=== PATIENT | female | born 1990 | race Caucasian/White ===

== ENCOUNTER → 2021-10-15 09:14 | Outpatient (CLI) | payer OTHER, SELFPAY ==
--- NOTE | ~2021-10-15 | US_ITS ---
EXAMINATION: US OB transvaginal DATE: 10/15/2021 09:35 INDICATION: Spotting complicating . First trimester. TECHNIQUE: Real-time transvaginal pelvic ultrasound was performed. COMPARISON: None. FINDINGS: The uterus measures 8.4 x 4.6 x 4.9 cm. There is an intrauterine gestational sac. A yolk sac is ident ified. The crown rump length measures 7 mm, which correlates with an estimated gestational age of 6 weeks and 4 day(s) (+/-) 4 day(s). heart motion is identified measuring 111 beats per min [place] (bpm) by M-mode Doppler. There is a 0.9 x 0.2 x 1.2 cm subchorionic hematoma. The right ovary jose juan sures 3.5 x 2.3 x 3.7 cm. The left ovary measures 2.1 x 1.7 x 3.0 cm. There is no free fluid in the p hakan. IMPRESSION: 1. Single living intrauterine gestation with estimated date of delivery of 06/06/2022. 2. Small subchorionic hematoma. Reviewed, dictated and finalized at location B. WRESTLING COACH IMPRESSION: 1. Single living intrauterine gestation with estimated date of delivery of 05/19. 2. Small subchorionic hematoma.
== END ==
PROVIDERS: Visit Provider Obstetrics & Gynecology
DX: O26.851 Spotting complicating pregnancy, first trimester (principal); Z3A.00 Weeks of gestation of pregnancy not specified
CPT/HCPCS: 76817

== ENCOUNTER 2021-10-17 08:04 | Outpatient (RCR) | payer OTHER, SELFPAY | END 2022-01-13 23:59 | disposition home or self-care (01) | LOC: ANHLAB 08:04 | PROVIDERS: Visit Provider Obstetrics & Gynecology | DX: O26.859 Spotting complicating pregnancy, unspecified trimester (principal); Z3A.00 Weeks of gestation of pregnancy not specified | CPT/HCPCS: 36415; 84702; 85461 ==

== ENCOUNTER → 2021-11-01 13:14 | Outpatient (CLI) | payer BC, SELFPAY ==
--- NOTE | ~2021-11-01 | US_ITS ---
EXAMINATION: US OB limited DATE: 11/01/2021 13:29 INDICATION: Subchorionic hematoma spotting during first trimester TECHNIQUE: Real-time pelvic ultrasound utilizing transabdominal probe was performed. The emilianain g radiologist was not present for the study. COMPARISON: None. FINDINGS: The uterus measures 9.8 x 6.1 x 7.7 cm. There is an intrauterine gestational sac. A yolk sac and fet al pole are identified. heart motion is identified measuring 172 beats per minute (bpm) by M-mo de Doppler. Persistent small hypoechoic subchorionic hematoma measuring 1.7 x 1.1 x 0.7 cm. IMPRESSION: 1. Single living fetus with heart rate of 172 bpm. 2. Persistent 1.7 x 1.1 x 0.7 cm subchorionic hematoma. Reviewed, dictated and finalized at location A. CUTTER
== END ==
PROVIDERS: Visit Provider Obstetrics & Gynecology Gynecology
DX: O26.851 Spotting complicating pregnancy, first trimester (principal); Z3A.00 Weeks of gestation of pregnancy not specified
CPT/HCPCS: 76815

== ENCOUNTER 2022-06-06 06:14 | Inpatient (IN) | payer BC, SELFPAY ==
[2022-06-06] VITALS (18 sets, daily range): BP systolic 87–154; BP diastolic 48–135; PULSE 54–172; RESP 16–18; TEMP 36.5–36.9; O2SAT 97–99; BMI 25.0
--- NOTE | 2022-06-06 06:23 | PM.IMHP ---
H&P: HPI History of Present Illness Date/Time: 06/06/22 06:23 Chief Complaint: active labor at term Narrative: this is a 32-year-old menstrual CT 2 at term in active labor she spontaneously ruptured that 0445. She negative for group B strep and appears her has been complicated PMFSH Family History Family History Father Squamous carcinoma Mother Hypertension Grandparent Alzheimer disease Social History Social History Substance use: never Spiritual care concerns: No Meds Home Medications and Allergies Home Medications Medication Instructions Recorded Confirmed Type prenat.vits,tejas,[id number] 1 tablet PO DAILY 05/14/22 05/14/22 History Allergies Allergy/AdvReac Type Severity Reaction Status Date / Time No Known Allergies Allergy Verified 05/14/22 15:15 Exam : Speculum Exam - Vagina: normal appearance of the vagina Speculum Exam - Cervix: normal appearance of the cervix ( cervix complete. Clear fluid seen. heart tones with variables) Assessment and Plan Assessment and plan (1) Term : Code(s): Z34.90 - Encounter for supervision of normal , unspecified, unspecified trimester Status: Acute (2) Active labor: Status: Acute Plan spontaneous vaginal delivery is expected
--- NOTE | 2022-06-06 06:30 | LDADM ---
This patient, Kathryn Herbert, was admitted to Labor/Delivery/Recovery 105 on 06/06/22 at 06:14. Plans for labor, pain management and were discussed with patient. Patient/family oriented to hospital policies and general routines including ID bracelet, bed and alarms, visiting hours, pain management, procedures, bathroom and other care routines, personal items, smoking policy, room service/diet and guest tray routines, security routines, and visiting hours. Patient/Family are encouraged to report perceived risks to care and to ask questions if they do not understand what they are told or what they should do. See OBIX for further documentation.
[2022-06-06 06:45] LABS: Basophils Percent Auto 0.3 % (0.2-1.2); Eosinophils Absolute Auto 0.3 K/mm3 (0-0.3); Eosinophils Percent Auto 2.1 % (0-4.4); Hematocrit 39.7 % (37.0-47.0); Hemoglobin 13.2 g/dL (12.0-15.0); Immature Granulocyte Absolute 0.06 K/mm3 (0.00-0.031); Immature Granulocyte Percent A 0.4 % (0-0.5); Lymphocytes Absolute Auto 2.42 K/mm3 (0.9-3.2); Lymphocytes Percent Auto 16.6 % (18.3-44.2); Mean Corpuscular HGB Conc 33.2 g/dl (32-36); Mean Corpuscular Hemoglobin 31.4 pg (26-34); Mean Corpuscular Volume 94.3 fl (80-100); Monocytes Absolute Auto 0.9 K/mm3 (0.1-0.6); Monocytes Percent Auto 6.1 % (2.6-8.5); Neutrophils Absolute Auto 10.9 K/mm3 (1.3-6.7); Neutrophils Percent Auto 74.5 % (45.5-73.1); Platelet Count Result 168 k/mm3 (150-375); Red Blood Count 4.21 M/mm3 (4.2-5.4); Red Cell Distribution Width 12.7 % (11.5-14.5); White Blood Count 14.6 K/mm3 (4.5-10.0)
[2022-06-06] MEDS: OXYTOCIN 30 UNITS/NS 500 ML 30 UNITS/500 ML BAG 999 UNITS IV CONT (06:54)
[2022-06-06] MEDS: LACTATED RINGERS 1,000 ML 125 ML IV CONT (06:54)
--- NOTE | 2022-06-06 07:05 | PM.OBPRVD ---
OB - Delivery Note Procedure Delivery date: 06/06/22 Procedure: Induction method: None Delivery monitor: External FHT Route of delivery: Episiotomy description: None Laceration Description: Perineal - 1st Degree Delivery repair: vicryl Specimen: No Quantitative Blood Loss (ml): 59 Anesthesia type: Local Disposition: Floor [place] Baby Date of : 06/06/22 Time of : 06:54 Weeks of gestation at delivery: 39 gender: Female presentation: vertex position: Right Occiput Anterior Placenta delivery description: Spontaneous Cord Vessel Description: 3 Vessels, Nuchal Cord, Tight and Clamped/Cut score one minute: 8 score five minutes: 9
[2022-06-06] MEDS: OXYTOCIN 30 UNITS/NS 500 ML 30 UNITS/500 ML BAG 125 UNITS IV CONT (07:25)
[2022-06-06 07:37] LABS: HIV 1/2 Ab P24 Ag Result Negative (Negative)
[2022-06-06 08:48] LABS: Rapid Plasma Reagin Non-Reactive (NonReactive)
--- NOTE | 2022-06-06 14:58 | OBPPTRN ---
1000-Patient transferred to post room #292 via wheelchair. Support person present. Oriented to unit, room, information board, rooming in, admission packet and security measures. Patient verbalizes understanding.
[2022-06-07 04:30] VITALS: BP 94/62; PULSE 80; RESP 16; TEMP 36.9; O2SAT 99
[2022-06-07 05:35] LABS: Hematocrit 33.4 % (37.0-47.0)
--- NOTE | 2022-06-07 07:06 | PM.DS ---
DS: Admitting Diagnosis Discharge Date 06/07/2022 Admitting Diagnosis term in active labor DS: Discharge Diagnosis Discharge Diagnosis (1) Term : Code(s): Z34.90 - Encounter for supervision of normal , unspecified, unspecified trimester Status: Acute DS: Summary Hospital Course Reason for hospitalization: active labor at term Hospital Course: patient was admitted in active labor and underwent rapid spontaneous vaginal delivery. Her 24hour course was unremarkable. She remained afebrile. She was up, voiding without difficulty, ambulating, generally without complaints. Time Spent with Patient Time attestation: Total time spent providing and/or coordinating discharge services: DS: Data Data Completed and Pending Labs on day of discharge: Labs from last 24 hours 06/07/22 06/06/22 06/06/22 04:46 06:35 06:35 Hgb 11.0 L Hct 33.4 L RPR Non-reactive HIV 1&2 Ab/P24 Ag 4thGn Negative Discharge Plan Discharge Attending physician on discharge: Griffin Lawton Discharging Clinician: Griffin Lawton Patient Disposition: Home, Self-Care Activity: may shower, no straining and pelvic rest Diet: heart healthy Wound Care Instructions: follow printed instructions Patient Instructions: Antibiotic Form Stand Alone Forms: General Discharge Information Follow-up/Referrals: Griffin Lawton MD [Physician] - Discharge Medications: Continued #2 Tablet 1 tablet PO DAILY Date of admission: 06/06/22 06:14 Primary Care Provider: PHYSICIAN,ASSISTANT PROFESSOR OF NURSING Admitting Provider: Griffin Lawton Attending physician on admission: Griffin Lawton Condition: Stable
--- NOTE | 2022-06-07 07:10 | PM.OBPNVD ---
OB - PN: Subj Subjective Date/time seen: 06/07/22 07:10 Patient comments: no complaints and pain well controlled baby status: doing well OB - PN: Obj Data Labs CBC & Chem 7: 06/07/22 04:46 Labs: Laboratory Results - last 24 hr 06/06/22 06/06/22 06/07/22 06:35 06:35 04:46 Hgb 11.0 L Hct 33.4 L RPR Non-reactive HIV 1&2 Ab/P24 Ag 4thGn Negative OB - PN A/P Plan day: 1 Plan: routine care, discharge home and follow up 6 weeks Time Spent With Patient Time: Total time spent is greater than 50% in coordination of care (as documented) at patient's floor/unit and/or counseling patient: Time with patient: less than 15 minutes
[2022-06-07 09:08] VITALS: BP 97/64; PULSE 86; RESP 16; TEMP 36.6; O2SAT 97
--- NOTE | 2022-06-07 14:03 | PC.NURSE ---
Patient instructed on viewing the discharge video Mother & Baby Care, The First Two Weeks . Patient was given the opportunity and encouraged to ask questions. Patient verbalized understanding of information shared and has been given the mother/baby guide for home reference.
[2022-06-09 11:16] VITALS: BP 110/73; PULSE 90; RESP 18; TEMP 36.8; O2SAT 99
== END 2022-06-07 14:08 | disposition home or self-care (01) | DRG 807 ==
LOC: ANHLDR 06:21 → ANHOB2 10:03
PROVIDERS: Admitting Provider Obstetrics & Gynecology; Visit Provider Obstetrics & Gynecology
DX: O62.3 Precipitate labor (principal); Z37.0 Single live birth; O69.81X0 Labor and delivery complicated by cord around neck, without compression, not applicable or unspecified; O70.0 First degree perineal laceration during delivery; Z3A.39 39 weeks gestation of pregnancy
CPT/HCPCS: 36415; 85014; 85018; 85025; 86592; 86703; 86850; 86900; 86901; A9270; G0432; J2590; J7120

== ENCOUNTER 2024-12-13 10:40 | Outpatient (CLI) | payer BC, SELFPAY ==
--- NOTE | ~2024-12-13 | XR_ITS ---
EXAMINATION: XR hysterosalpingogram DATE: 12/13/2024 11:57 INDICATION: Infertility. TECHNIQUE: Fluoroscopy was performed by the radiologist during contrast infusion into the endometrial cavity of the uterus by the primary physician. Fluoroscopy exposure time was 0.2 minutes. The total number of images was 3. FINDINGS: The intrauterine cavity is normal in morphology. The fallopian tubes are normal. There is n ormal free intraperitoneal spillage of contrast on either side. IMPRESSION: 1. Normal hysterosalpingogram. Reviewed, dictated and finalized at location A. ER ROLLER GRINDER
[2024-12-13 12:15] LABS: Beta HCG Quantitative < 2.39 mIU/ML
--- OUTSIDE RECORDS SUMMARY | 2024-12-13 12:34 | XMS_ITS | Clinical Summary ---
Author Organization [facility] Address [address] [place] [address] Phone Care Team Providers Care Batch Heat Treat Operator Name Role Phone Provider, Unknown Primary Care Provider Unavaila ble Allergies No known active allergies Medications No known medications Active Problems No known active problems Immunizations Immunization Administration Dates Next Due Covid-19, Mrna, Lnp-s, Pf, 3 0 Mcg/0.3 Ml Dose ([place]) 10/29/2020,10/08/2020 Influenza Vaccine, Quadrivalent, PF 08/06/2021,0 07/12/2020,07/14/2019 Social History Tobacco Use Types Packs/Day Years Used Date Smoking Tobacco: Never Smokeless Tobacco: Never Tobacco Cessation:Counseling Given: Not Answered Alcohol Use Standard Drinks/Week Comments Yes 0 (1 standard drink = 0.6 oz pur e alcohol) infrequent Comments Unknown Sex and Gender Information Value Date Recorded Sex Assigned at Not on file Legal Sex Female 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 Gender Identity Not on file Sexual Orientation Not on file Last Filed Vital Signs Vital Sign Reading Time Taken Comments Blood Pressure 114/82 08/09/2024 2:42 PM CDT Pulse 101 08/09/2024 2:42 PM CDT Temperature 36.3 C (97.4 F) 08/09/2024 2:42 PM CDT Respiratory Rate 16 08/09/2024 2:42 PM CDT Oxygen Saturation 97% 08/09/2024 2:42 PM CDT Inhaled Oxygen Concentration - - Weight - - Height - - Body Mass Index - - Plan of Treatment Health Maintenance Due Date Last Done Comments Hepatitis C Virus (HCV) Screening 1992 Hepatitis B Immunization (1 of 3 - 19+ 3-dose series) 02/02/2011 Pap Smear 02/02/2013 Cervical Cancer Screening (CCS) 02/02/2022 HPV/Cotest 02/02/2022 Influenza Immunization (#1) 2024 11/0 05/2022, 08/06/2021, 07/12/2020, Additional history exists SARS-COV-2 Immunization (2023- season) 2024 10/29/2020, 10/08/2020 Respiratory Syncytial Virus (RSV) Immunization (Adult) (1 - 1-dose 75+ series) 02/02/2067 DTaP/Tdap/Td Immunization Discontinued 04/02/2022 TdaP Immunization Completed 04/02/2022 Meningococcal Immunization (ACWY) Aged Out No longer eligible based on patient's age to complete this topic Pneumococcal Immunization Combined Aged Out No longer eligible based on patient's age to complete this topic Rotavirus Immunization Aged Out No lo nger eligible based on patient's age to complete this topic Insurance Care Teams Batch Heat Treat Operator Relationship Specialty Start Date End Date Provider, Unknown UNKNOWN PCP - General 08/09/24
== END 2024-12-13 10:41 | disposition home or self-care (01) ==
PROVIDERS: Visit Provider Obstetrics & Gynecology
DX: N97.9 Female infertility, unspecified (principal)
CPT/HCPCS: 36415; 58340; 74740; 84702; Q9966

== ENCOUNTER 2025-10-08 04:45 | Inpatient (IN) | payer BC, SELFPAY ==
[2025-10-08] VITALS (25 sets, daily range): BP systolic 75–177; BP diastolic 52–145; PULSE 68–127; RESP 16; TEMP 36.6–37.2; O2SAT 96–98; BMI 27.8
[2025-10-08] MEDS: LACTATED RINGERS 1,000 ML 125 ML IV CONT (05:27)
[2025-10-08] MEDS: OXYTOCIN 30 UNITS/NS 500 ML 30 UNITS/500 ML BAG IV CONT (05:30)
[2025-10-08 05:31] LABS: Hematocrit 29.3 % (37.0-47.0); Hemoglobin 9.6 g/dL (12.0-15.0); Immature Granulocyte Percent A 0.4 % (0-0.5); Lymphocytes Absolute Auto 1.79 K/mm3 (0.9-3.2); Mean Corpuscular HGB Conc 32.8 g/dl (32-36); Mean Corpuscular Hemoglobin 29.7 pg (26-34); Mean Corpuscular Volume 90.7 fl (80-100); Nucleated Red Blood Cells Absolute Auto 0.000 K/mm3 (0.0-0.012); Nucleated Red Blood Cells Perc 0.0 % (0.0-0.2); Platelet Count Result 159 k/mm3 (150-375); Red Blood Count 3.23 M/mm3 (4.2-5.4); White Blood Count 8.0 K/mm3 (4.5-10.0)
--- NOTE | 2025-10-08 05:42 | PM.IMHP2 ---
H&P: HPI History of Present Illness Date/Time: 10/08/25 05:42 Chief Complaint: Term Narrative: 35-year-old 2 para 1 whose last menstrual period was 12/28/2024, EDC is 10/04/2025, presents at 40 and half weeks gestation for induction of labor she has an early ultrasound confirming dates. She is negative for group B strep and passed her diabetic screen she had a history of a fast labor and the cervix is very favorable Review of Systems Review of Systems: All systems reviewed & are unremarkable except as noted in HPI and below PMFSH Family History Family History Father Squamous carcinoma Mother Hypertension Grandparent Alzheimer disease Social History Social History Smoking status: Never smoker Second hand tobacco smoke exposure: No Substance use: never Lack of Transportation: No Lack of Food: Never True Current Housing: I Have Housing Concerned About Future Housing: No Difficulty Paying Gas/Electric Bills: No Difficulty Paying for Meds: No Currently Unemployed: No Education: Master's Degree or Higher Difficulty w/ Childcare or Family Care: No Spiritual care concerns: No Meds Home Medications and Allergies Home Medications ?Medication ?Instructions ?Recorded ?Confirmed ?Type prenat.vits,tejas,yue-jsmi-jateg 1 tablet PO DAILY 05/14/22 09/19/25 History Allergies Allergy/AdvReac Type Severity Reaction Status Date / Time No Known Allergies Allergy Verified 10/08/25 05:04 Vital Signs Vital Signs - 24 hr 10/08/25 05:00 10/08/25 05:16 10/08/25 05:31 Temperature 98 F Pulse Rate 90 89 90 Respiratory Rate 16 Blood Pressure 106/68 104/73 106/73 Exam Const: General: cooperative, healthy appearing, comfortable, well groomed and overweight Orientation/consciousness: oriented to person, oriented to place and oriented to time HENMT: Head: normal to inspection Resp: Effort & Inspection: normal respiratory effort Cardio: Rate: regular rate Rhythm: regular rhythm Heart sounds: S1 normal heart sound present and S2 normal heart sound present GI: Inspection: normal to inspection (Gravid soft uterus) : External Female Exam: normal external appearance Speculum Exam - Vagina: normal appearance of the vagina Speculum Exam - Cervix: normal appearance of the cervix (Cervix /1. AROM clear. FHTs reassuring) Results Labs Labs: Short CBC 10/08/25 Range/Units 05:19 WBC 8.0 (4.5-10.0) K/mm3 Hgb 9.6 L (12.0-15.0) g/dL Hct 29.3 L (37.0-47.0) % Plt Count 159 (150-375) k/mm3 Assessment and Plan Assessment and plan (1) Term : Code(s): Z34.90 - Encounter for supervision of normal , unspecified, unspecified trimester Status: Acute Plan Medical induction of labor. Spontaneous vaginal delivery is expected.
[2025-10-08 06:10] LABS: Syphilis IgG/IgM Antibody Non-Reactive (Nonreactive)
--- NOTE | 2025-10-08 07:52 | PM.OBPNLAB ---
Pain Control Date/time seen: 10/08/25 07:52 Pain control: tolerating well
--- NOTE | 2025-10-08 08:16 | PM.OBPRVD ---
OB - Vaginal Delivery Note Procedure Delivery date: 10/08/25 Events: Elective Induction of Labor Induction method: AROM Delivery monitor: External FHT and External Uterine Route of delivery: Episiotomy description: None Laceration Description: None Quantitative Blood Loss (ml): 63 Anesthesia type: None Disposition: Floor Complications: No immediate complications Narrative: Admitted for induction of labor on the 10/08/2025 about 0 5 artificial performed sex she rapidly progressed to complete delivered the head spontaneously in the ELY position nuchal cord checked noted be loose x1 around the occiput anterior posterior shoulder delivered spontaneously. Cord clamped x2 and cut passed off table given Apgars of 8 mp1pstjca 9 at 5 cord blood was drawn. Placenta delivered intact spontaneously. Twenty of Pitocin placed IV to help firm the uterus. After inspecting all sidewalls no tears or lacerations EBL 63cc. All sponge, needle, instrument counts were correct there were no immediate complications noted Baby Date of : 10/08/25 Time of : 08:06 Gestational Age by Date: 40 Infant gender: Female presentation: vertex position: Right Occiput Anterior Placenta delivery description: Spontaneous Cord Vessel Description: 3 Vessels, Nuchal Cord, Loose and Reduced score one minute: 8 score five minutes: 9
--- NOTE | 2025-10-08 08:18 | P.DS_ITS ---
DS: Admitting Diagnosis Discharge Date 10/09/2025 Admitting Diagnosis Term DS: Discharge Diagnosis Discharge Diagnosis (1) Term : Code(s): Z34.90 - Encounter for supervision of normal , unspecified, unspecified trimester Status: Acute DS: Summary Hospital Course Reason for hospitalization: Patient underwent a successful spontaneous vaginal delivery 10/08/2020 8:06 a.m. folic successful induction of labor Hospital Course: Patient's hospital course. She was . She was up, voiding without difficulty, eating regular diet, ambulating, without complaints. Time Spent with Patient Time attestation: Total time spent providing and/or coordinating discharge services: Exam Const: General: cooperative, healthy appearing, comfortable, well groomed and overweight Orientation/consciousness: oriented to person, oriented to place and oriented to time HENMT: Head: normal to inspection Resp: Effort & Inspection: normal respiratory effort Cardio: Rate: regular rate Rhythm: regular rhythm Heart sounds: S1 normal heart sound present and S2 normal heart sound present GI: Inspection: normal to inspection (Gravid soft uterus) : External Female Exam: normal external appearance Speculum Exam - Vagina: normal appearance of the vagina Speculum Exam - Cervix: normal appearance of the cervix (Cervix 4/80/1. AROM clear. FHTs reassuring) DS: Data Data Completed and Pending Labs on day of discharge: Labs from last 24 hours 10/08/25 05:19 WBC 8.0 RBC 3.23 L Hgb 9.6 L Hct 29.3 L MCV 90.7 MCH 29.7 MCHC 32.8 RDW 13.5 Plt Count 159 MPV 12.4 H Immature Gran % (Auto) 0.4 Neut % (Auto) 68.2 Lymph % (Auto) 22.4 [place] % (Auto) 7.0 Eos % (Auto) 1.9 Baso % (Auto) 0.1 L Lymph # (Auto) 1.79 [place] # (Auto) 0.6 Eos # (Auto) 0.2 Baso # (Auto) 0.0 Abs Immat Gran (auto) 0.03 Absolute Neuts (auto) 5.5 Absolute Nucleated RBC 0.000 Nucleated RBC % 0.0 Syphilis IgG/IgM Ab Non-reactive Blood Type A Positive Antibody Screen Negative Discharge Plan Discharge Attending physician on discharge: Griffin Lawton Discharging Clinician: Griffin Lawton Patient Disposition: Home Activity: february shower, no straining and pelvic rest Diet: heart healthy Wound Care Instructions: follow printed instructions Patient Instructions: Antibiotic Form Patient Language: Welsh Stand Alone Forms: General Discharge Information Follow-up/Referrals: Griffin Lawton MD [Physician, OFFICIAL COURT REPORTER] Discharge Medications: Continued prenat.vits,tejas,mrm-aglz-quoeh Tablet 1 tablet PO DAILY Date of admission: 10/08/25 04:45 Primary Care Provider: PHYSICIAN,ARABIC TRANSLATOR Admitting Provider: Griffin Lawton Attending physician on admission: Griffin Lawton Condition: Stable
[2025-10-08] MEDS: OXYTOCIN 30 UNITS/NS 500 ML 30 UNITS/500 ML BAG 125 UNITS IV CONT (08:40)
[2025-10-09 04:00] VITALS: BP 101/65; PULSE 74; RESP 16; TEMP 36.7; O2SAT 100
[2025-10-09 04:52] LABS: Hematocrit 30.3 % (37.0-47.0); Hemoglobin 9.7 g/dL (12.0-15.0)
--- NOTE | 2025-10-09 06:25 | PM.OBPNVD ---
OB - PN: Subj Subjective Date/time seen: 10/09/25 06:25 Patient comments: no complaints, pain well controlled and tolerating diet [place] baby status: doing well [place] feeding status: exclusively breast feeding OB - PN: Obj Data Labs 10/09/25 04:11 Labs: Laboratory Results - last 24 hr 10/08/25 10/09/25 05:19 04:11 Hgb 9.7 L Hct 30.3 L Blood Type A Positive Antibody Screen Negative OB - PN A/P Assessment and Plan (1) Term : Code(s): Z34.90 - Encounter for supervision of normal , unspecified, unspecified trimester Status: Acute Plan home Time Spent With Patient Time: Total time spent is greater than 50% in coordination of care (as documented) at patient's floor/unit and/or counseling patient: Review of Systems Review of Systems: All systems reviewed & are unremarkable except as noted in HPI and below Exam Const: General: cooperative, healthy appearing, comfortable, well groomed and overweight Orientation/consciousness: oriented to person, oriented to place and oriented to time HENMT: Head: normal to inspection Resp: Effort & Inspection: normal respiratory effort Cardio: Rate: regular rate Rhythm: regular rhythm Heart sounds: S1 normal heart sound present and S2 normal heart sound present GI: Inspection: normal to inspection (Gravid soft uterus) : External Female Exam: normal external appearance Speculum Exam - Vagina: normal appearance of the vagina Speculum Exam - Cervix: normal appearance of the cervix (Cervix 4/80/1. AROM clear. FHTs reassuring)
[2025-10-09 08:00] VITALS: BP 105/74; PULSE 69; RESP 16; TEMP 36.8; O2SAT 98
[2025-10-09] MEDS: DOCUSATE SODIUM 100 MG CAPSULE PO (08:28)
[2025-10-09] MEDS: MULTIVIT/MIN/PREN/FOL AC/IRON TABLET 1 TAB PO (08:28)
--- NOTE | 2025-10-09 12:45 | PC.NURSE ---
Consulted with mother concerning needs and she shared her ability to independently latch infant optimally without pain. Mother is feeding appropriately for growth of and understands stimulating to eat if needed. Infant has had appropriate feedings in the last 24 hours meets the outcomes for weight, output, blood sugar and jaundice at this time. Reinforced understanding of milk production, transition of milk, signs of adequate intake, transition of stool, prevention/relief of engorgement, plugged ducts, mastitis, responsive watching for feeding cues, the different methods of stimulating to breastfeed 1-3 hours after the start of the last feeding, community resources, and when to call a provider using the resource of the feeding sheet along with the mom and baby guide. Mother voiced understanding of the information shared, is confident to continue effectively her infant at home, when to call for assistance, denies any additional assistance or education at this time. Reported to the Primary RN.
[2025-10-11 09:11] VITALS: BP 100/94; PULSE 83; RESP 16; TEMP 36.4; O2SAT 100
== END 2025-10-09 14:40 | disposition home or self-care (01) | DRG 807 ==
LOC: ANHLDR 08:20 → ANHOBPP 11:02 → ANHOB2 18:03
PROVIDERS: Admitting Provider Obstetrics & Gynecology; Visit Provider Obstetrics & Gynecology
DX: O69.81X0 Labor and delivery complicated by cord around neck, without compression, not applicable or unspecified (principal); Z37.0 Single live birth; Z3A.40 40 weeks gestation of pregnancy; O62.3 Precipitate labor
CPT/HCPCS: 36415; 85014; 85018; 85025; 86593; 86850; 86900; 86901; A9270; J2590; J7120